=== PATIENT | female | born 1940 | race Caucasian/White ===

== ENCOUNTER 2023-08-28 16:00 | Emergency (ER) | payer MEDICARE ==
[~2023-08-28] VITALS: Ht 175.3 cm; Wt 68.0 kg
[2023-08-28 16:00] VITALS: BP_SYST 142; PULSE 67; RESP 18; TEMP 97; O2SAT 97
[2023-08-28] MEDS: ACETAMINOPHEN 500 MG TABLET PO ONE (16:58)
[2023-08-28] MEDS ORDERED: DICL20GE TP (19:11)
[2023-08-28] MEDS ORDERED: IBUP-2018 PO (19:11)
[2023-08-28] MEDS: IBUPROFEN 600 MG TABLET PO ONE (19:32)
[2023-08-28 20:05] VITALS: BP_SYST 149; PULSE 102; RESP 19; TEMP 98; O2SAT 99
[2023-08-29] MEDS ORDERED: IOHEXOL 350 mgI/mL, 150 ML INFUS..BTL IV ONE (01:11)
== END 2023-08-28 20:05 | disposition home or self-care (01) ==
LOC: SED 16:00
DX: S42.202A Unspecified fracture of upper end of left humerus, initial encounter for closed fracture (principal); S00.212A Abrasion of left eyelid and periocular area, initial encounter; W18.39XA Other fall on same level, initial encounter; Y93.89 Activity, other specified; Y92.89 Other specified places as the place of occurrence of the external cause; Y99.8 Other external cause status
CPT/HCPCS: 70450-TC; 73030; 93005; 99284; Q9967